=== PATIENT | female | born 1965 | race Caucasian/White ===

== ENCOUNTER → 2016-06-11 | Outpatient (CLI) | payer BC ==
[~2016-06-11] MED LIST: MOTRIN800 MG PO
--- NOTE | 2016-06-11 17:05 | RADIOLOGY REPORT PS360 ---
US THYROID HISTORY: Enlarged thyroid, abnormal labs THYROID NODULE ORDERING PHYSICIAN: Daya GREEN PATIENT AGE: 50 years COMPARISON: None FINDINGS: The right lobe measures 4.1 x 1.8 x 1.9 cm. A 5 mm hypoechoic nodule is present in the lower pole on the right. The left lobe measures 3.8 x 1.7 x 1.6 cm. An ill-defined area of decreased echogenicity is present in the lower pole at 10 x 6 mm. The isthmus is unremarkable. IMPRESSION: 1. Bilateral thyroid nodules 5 mm on the right and 10 mm on the left. Recommend 6 month follow-up to confirm short-term stability
== END ==
LOC: RAD 06-07 13:45
DX: E04.1 Nontoxic single thyroid nodule (principal)

== ENCOUNTER → 2016-11-18 | Outpatient (CLI) | payer BC ==
--- NOTE | 2016-11-20 09:07 | RADIOLOGY REPORT PS360 ---
Bilateral ULTRASOUND THYROID PROCEDURE: Multiple sagittal & transverse ultrasound images of the thyroid. HISTORY: Follow up bilateral thyroid nodules seen on May 2016 ultrasound COMPARISON:May 2016 ultrasound ----- FINDINGS: Moderate Inhomogeneous thyroid echo pattern bilaterally. RIGHT LOBE: 4.1 cm x 1.9 cm wide x 1.5 cm AP Nodule A: Tiny vague slightly hypoechoic area/nodule at lower pole right lobe. Measuring up to 4.5 mm x 3.6 x 2 mm. Equivocal feature barely appreciable at lower pole right lobe towards the isthmus.. No significant change since prior study. LEFT LOBE: 3.9 cm length X 1.5 cm wide x 1.4 cm AP Nodule A:: Vague hypoechoic solid area measuring 7.6 mm length 3 mm AP again seen at the posterior aspect of the mid to lower left lobe. There is inhomogeneous appearance throughout this region]; with a slightly more discrete appearing nodule within this inhomogeneous region measured and seen today. Overall. There is been no significant progression since May 2016 . ISTHMUS: Normal thickness measuring up to 3.7 mm AP. No specific nodule seen here nodules IMPRESSION-------- No significant change since previous May 2016 study. Small vague bilateral nodules again noted, with No progression Upper normal size thyroid gland on right Mild/moderate inhomogeneous pattern throughout thyroid bilateral.
== END ==
LOC: RAD 09:08
DX: E04.1 Nontoxic single thyroid nodule (principal)